=== PATIENT | male | born 1995 ===

== ENCOUNTER 2017-04-09 07:44 | Day surgery (SDC) | payer OTHER ==
--- NOTE | 2017-04-06 08:33 | HP ---
DATE OF SURGERY: 04/09/[address] [facility] DATE OF OFFICE VISIT: 04/05/17 ATTENDING SURGEON: Dr. Ilana Mason * (DICTATED BY YUKI LOVE) PROCEDURE: Left knee arthroscopy, possible meniscus repair, ACL reconstruction with bone/patella/tendon/bone autograft. CHIEF COMPLAINT: Left knee pain. HISTORY OF PRESENT ILLNESS: Mr. Karlos Lopez is a 21-year-old male who had a left knee injury during wrestling. Since that time, he has had pain and instability. He has failed conservative measures and has, therefore, agreed to undergo a left knee arthroscopy, possible meniscus repair, ACL reconstruction with bone/patella/tendon/bone autograft with Dr. Mason on 04/09/17. PAST MEDICAL HISTORY: Denies current problems. PAST SURGICAL HISTORY: Right knee ACL reconstruction. Denies complications with anesthesia. MEDICATIONS: No active medications. ALLERGIES: No known drug allergies. FAMILY HISTORY: Positive for diabetes. Denies family history of DVT or PE. SOCIAL HISTORY: He is an [employer] student. He denies tobacco use. He reports occasional alcohol use. He reports he smokes marijuana. REVIEW OF SYSTEMS: General: Negative for fever, chills, or night sweats. No known anesthesia complications. HEENT: Negative for headache, lightheadedness , or syncopal episodes. Integumentary: Negative for abrasions, lesions, or open wounds. Cardiothoracic: Negative for chest pain, palpitations, edema or hypertension. Pulmonary: Negative for shortness of breath with exertion, chronic cough or COPD. GI: Negative for nausea, vomiting, diarrhea, constipation or GERD. : Negative for nocturia, history of UTIs, or kidney problems. Musculoskeletal: Positive for current complaint. Neuro: Negative for numbness, tingling, or history of seizure, stroke, or epilepsy. Endocrine: Negative for diabetes or thyroid issues. Heme: Negative for easy bruising, history of bleeding disorder, history of DVT or PE. Infectious Disease: Negative for history of MRSA, hep C, or HIV. PHYSICAL EXAMINATION GENERAL: Well-developed, well-nourished 21-year-old male in no acute distress. Alert and oriented x3 with appropriate mood and affect. VITAL SIGNS: Height 67, weight 170. Pulse 64, blood pressure 110/63, temperature 97.1. BMI 26.6. HEENT: Normocephalic, atraumatic. Throat clear. NECK: Supple. PULMONARY: Lungs clear to auscultation bilaterally. No wheezing, rhonchi, or rales. CARDIO: Regular rate and rhythm. S1 and S2. No murmurs, gallops, or rubs. No edema. ABDOMEN: Positive bowel sounds, soft, nontender. MUSCULOSKELETAL: Left lower extremity - skin is intact. No warmth or erythema. Non-tender joint line. Range of motion from zero to 120 degrees. Stable to varus and valgus stress. ____ Summer. Negative posterior drawer. Calves soft, non- tender, +2 posterior tibialis pulses. Sensation intact to light touch distally. NEUROLOGIC: Alert and oriented x3. Cranial nerves grossly intact. Sensation intact to light touch. STUDIES: X-rays and MRI of the left knee revealed complete ACL rupture of the medial meniscus tear. IMPRESSION: Left knee ACL complete tear and medial meniscus tear. PLAN: The patient is scheduled to undergo a left knee arthroscopy, possible meniscus repair, ACL reconstruction with bone/patella/tendon/bone autograft with Dr. Mason on 04/09/17. He will return to the office eight days postop for followup and suture removal. Percocet will be used for postoperative pain management. YUKI LOVE [id number]/[facility] #: [id number] MTDNestor
[~2017-04-09 07:44] MED LIST: Buffered Lidocaine 0.9% SYRIN* 5 ML/SYR SYRINGE INTRADERM ONE; Bupivacaine 0.25% SDV* 30 ML ONE
[2017-04-09] MEDS ORDERED: Scopolamine 1.5 mg* PATCH ONE (08:27)
[2017-04-09] MEDS ORDERED: ceFAZolin 2 GM PREMIX (*) 50 ML IVPB ONE (08:27)
[2017-04-09] MEDS ORDERED: fentaNYL* 50 MCG/ML 2 ML VIAL (100 MCG VIAL) ONE (08:51)
[2017-04-09] MEDS ORDERED: Dexamethasone IV* 4 MG/ML 1 ML (4 MG) ONE (08:52)
[2017-04-09] MEDS ORDERED: Lidocaine 2% PF * 5 ML VIAL ONE (08:52)
[2017-04-09] MEDS ORDERED: Propofol* 10 MG/ML 20 ML BTL IV PUSH ONE (08:52)
[2017-04-09] MEDS ORDERED: Ondansetron INJ* 2 MG/ML VIAL ONE (08:52)
[2017-04-09] MEDS ORDERED: Ketorolac INJ* 30 MG/ML 1 ML VIAL ONE (09:08)
[2017-04-09] MEDS ORDERED: fentaNYL* 50 MCG/ML 2 ML VIAL (100 MCG VIAL) IV PRN (09:28)
[2017-04-09] MEDS ORDERED: HYDROcodone/ACETAMIN 5-325 MG* 1 TAB PO PRN (09:28)
[2017-04-09] MEDS ORDERED: DiMENhydriNATE IV* 50 MG/ML VIAL IV PUSH PRN (09:28)
[2017-04-09] MEDS ORDERED: HYDROmorphone* 1 MG/ML 1 ML SYR IV PRN (09:28)
[2017-04-09] MEDS ORDERED: oxyCODONE/Acetamin 5/325 MG* TAB ONE (11:40)
[2017-04-09 13:32] VITALS: BP 122/72
--- NOTE | 2017-04-12 05:17 | OP ---
DATE OF OPERATION: 04/09/17 - [facility] DATE OF : 89 SURGEON: Ilana Mason MD. ASSISTANTS: YUKI Hill. [employer] Operator was needed for the entirety of the case to help with positioning, retraction, and was utilized throughout all portions of the case. ANESTHESIOLOGIST: Dr. Warner. ANESTHESIA: General. PRE-OP DIAGNOSIS: Left knee ACL tear with medial meniscal tear. POST-OP DIAGNOSIS: Left knee ACL tear with medial meniscal tear. OPERATIVE PROCEDURE: Left knee arthroscopy with ACL reconstruction using BPTB autograft and medial meniscal repair, partial lateral meniscectomy. COMPLICATIONS: None. ESTIMATED BLOOD LOSS: Minimal. TOURNIQUET TIME: 30 minutes at 250 mmHg. IMPLANTS USED: Two Bliss and Nephew SoftSilk, one was 9 x 25 and the other was 7 x 25 mm. 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 He did this earlier this year. We talked about how he has a meniscal tear, which also needs to be addressed. He was unable to do surgery until this fall and after an extensive discussion of the risks and benefits of operative versus nonoperative treatment, he has elected to proceed with operative treatment. Risks included, but are not limited to bleeding, infection, damage to nerves, vessels, surrounding structures, wound nonhealing, persistent pain, need for further surgery, scarring, stiffness, persistent pain, incomplete relief of symptoms, retear, meniscus tear, risk of arthritis, risk of DVT, hardware failure, graft failure, risk of anesthesia. DESCRIPTION OF PROCEDURE: The patient was greeted in the preoperative area by the attending surgeon. The correct extremity was marked and consent was confirmed. The patient was brought back to the operative suite where he was placed in supine position on operating table. He underwent general anesthesia with endotracheal intubation after which the patient was appropriately positioned on the bed with an unsterile tourniquet high in the proximal thigh, a 10-pound beanbag at the base of the bed to keep knee at 90 degrees and lateral post. The left knee was then prepped and draped in usual sterile fashion beginning with chlorhexidine soap scrub, and alcohol wipe, and a final prep with ChloraPrep. Prior to prep and drape, an examination was done and he was found to have a range of motion of 0 to 135 degrees, stable to varus and valgus stress, 2B to 3B Summer, 1+ to the chest. After appropriate surgical pause indicating side, site, procedure and administration of antibiotics, the Esmarch was used to exsanguinate the limb and the tourniquet was inflated to 250 mmHg. The midline incision centered over the patellar tendon was then made with a 10 blade and soft tissue was carefully dissected for flaps and layer closures. The paratenon was then identified and sharply incised again for later closure. The tendon was exposed , it measured about 38 mm in width, the center 10 mm were harvested with a fresh blade. The dissection was carried proximally to harvest about a 25 x 9 mm bone block and a 10 x 30 mm distal tibial bone block. These were outlined using the electrocautery device and then the sagittal saw was used to make the cuts. These were then loosened with a curved osteotome. The graft was then prepared in the back table. All excess bone was kept for later bone graft of the patellar defect. Once the graft was prepared by the attending surgeon, it was wrapped in the back table in sterile saline soaked gauze. Attention was then directed to the arthroscopy portion. The tourniquet was deflated. The lateral capsule was incised using 11 blade. The scope was introduced into the joint. Joint was examined. The undersurface of the patella had grade 0 changes. The trochlea had grade 0 changes. There was a large plica laterally and medially there was a significant amount of synovitis. No loose bodies were evident in the gutter. The knee was then brought into 90 degrees and the scope was positioned and the notch of the anterior and medial portal was made in an outside-in fashion. The shaver was used to debride the fat pad. The ACL was identified, approximately 80% was torn and missing, but about 20% was scarred to the PCL. There were no attachments to the femoral wall. The remaining fibers were then carefully removed. The tibial footprint was prepared as well as the femoral portion. At this point, attention was directed to the medial and lateral compartments. The medial femoral condyle had grade 0 to 1 changes. Plateau had grade 0 to 1 changes. The medial meniscus had a small area of peripheral tearing, it was very small and then the meniscus was probed and there was a moderate sized longitudinal tear that was in the red-red, red-white zone and it was able to be subluxed. The decision was made to repair this due to the patient's age and the success rate with healing this in the setting of an ACL reconstruction. The edges of the meniscus were then carefully rasped using the meniscal rasp. Once a blush of blood was identified, two Bliss and Nephew Fast-Fix 360 [place] sutures were then passed to secure the meniscus which allowed for appropriate fixation of the meniscus. The knee was then placed in [id number] position and the lateral compartment was identified. The lateral femoral condyle had grade 0 to 1 changes. There was a small area of divot where there was presumptively the sulcus or the bone bruise pattern. The plateau had grade 0 to 1 changes and meniscus was intact except there was mild frying at the root. This was debrided back using the shaver. Once this was completed, attention was directed back to the ACL. The femoral footprint was then prepared in usual fashion. Due to the patient's sized notch, there was no notchplasty done, but the femoral tunnel was then prepared with electrocautery device. This was then marked with a starting awl. The portal was viewed from the medial and lateral portals and to make sure there is appropriate positioning. Next, attention was directed to the tibial tunnel. A tip-to-tip guide placed at around 50 degrees was then placed in the center of the tibial footprint. The guidewire was positioned. Once it was appropriately positioned, this was overdrilled with a size 10 mm full-bore reamer. Excess bone graft was saved for later bone grafting of the patellar defect. The tunnel was then rasped to make sure that there were no rough edges. The tunnel was visualized and found to be completely intact. Attention was then directed to the femoral portion. The Bliss and Nephew straight guide was then used and the knee was placed in hyperflexion. A Beath pin was then drilled through the center of the footprint out through the lateral cortex and through the IT band and skin. This was appropriately placed and checked for the camera changing positions. There was appropriate back wall. This was overdrilled with a size 9 mm low profile reamer to a depth of about 27 mm. The tunnel was visualized and found to be intact with a solid back wall. The excess bone and debris was removed. The tunnel was then notched. A free #2 Ti-Cron suture was passed through the islet of the Beath pin and passed through the soft tissues and then in anterograde fashion through the tibia. Once this was done, the graft was then brought to the operating table. The graft was then carefully passed through the tibial tunnel, well seated into the femoral tunnel in under arthroscopic visualization. The femoral portion was then secured with a 7 x 25 mm SoftSilk screw. Images were obtained. The knee was placed in full extension. There was no evidence of impingement of the graft. The knee was approximately 15 times. There was no shifting of the graft. The scope was then positioned again to make sure that there was no evidence of graft malpositioning or rotation. At this point, the knee was then placed approximately 20 degrees of flexion with tension on the tibial sutures. A size 9 x 25 mm SoftSilk screw was used to secure the tibial bone block. The knee was then taken through range of motion and Summer was assessed, which was stable. The scope was then positioned, placed back into the joint and the graft was appeared to be appropriately positioned. The scope was then brought into the medial compartment and the medial meniscus appeared to still be intact and secured. At this point, all final images were obtained. All fluid and debris was removed. The wounds were copiously irrigated with sterile saline. The excess bone graft was placed in the patellar defect as well as some in the tibial defect. This was oversewn with 0 Vicryl on patellar surface, then the paratenon was closed with 2-0 Vicryl in running fashion. Subcutaneous tissues were closed with 2-0 Vicryl and running 3-0 Monocryl for the skin. Sterile dressings were applied. The wound was injected with 0.25% Marcaine plain as well as the joints articularly. Sterile dressings were applied. Cryo/Cuff as well as a hinged knee brace with range of motion from 0 to 90 degrees locked in extension, however. He was awoken from anesthesia and transferred to PACU in stable condition. POSTOPERATIVE PLAN: He will be nonweightbearing for at least the first 4 weeks. He is starting school, so we may shorten this time frame. Range of motion is limited to 0 to 90 degrees for the first 4 weeks. He will be discharged on pain medication as well as antibiotics. I will see the patient back in 6 to 8 days. DVT prophylaxis was considered, but deferred due to no previous personal or family history. [id number]/[facility] #: [id number] [place]
== END 2017-04-09 12:45 | disposition home or self-care (01) ==
LOC: OREAST 07:44
PROVIDERS: ATTEND Orthopaedic Surgery
DX: S83.512A Sprain of anterior cruciate ligament of left knee, initial encounter (principal); S83.242A Other tear of medial meniscus, current injury, left knee, initial encounter; X50.0XXA Overexertion from strenuous movement or load, initial encounter; Y93.72 Activity, wrestling; Y92.39 Other specified sports and athletic area as the place of occurrence of the external cause
CPT/HCPCS: A9270-GY; C1713; J0690; J1100; J1885; J2405; J2704; J3010